=== PATIENT | male | born 1975 | race Two or more races ===

== ENCOUNTER 2024-08-14 20:47 | Emergency (ER) | payer SELFPAY ==
[~2024-08-14] VITALS: Ht 175.3 cm; Wt 86.4 kg
[2024-08-14 21:08] LABS: Urine Bacteria None Seen /hpf (None Seen)
[2024-08-14 21:14] LABS: Urine Blood Negative /uL (Negative); Urine Clarity Clear (Clear); Urine Color Colorless (Yellow); Urine Protein, UAD Negative (Negative); Urine Specific Gravity 1.006 (1.001-1.035); Urine Urobilinogen Normal (Negative); Urine WBC <1 /hpf (0 - 3)
[2024-08-14] MEDS ORDERED: BUPR150T8 PO (21:52)
[2024-08-14] MEDS ORDERED: VENL150C3 PO (21:52)
[2024-08-14] MEDS ORDERED: HYDR-3682 PO (21:52)
[2024-08-14] MEDS ORDERED: DICY10CA PO (21:52)
[2024-08-14] MEDS ORDERED: HAL5T PO (21:52)
[2024-08-14 22:04] VITALS: BP 144/86
[2024-08-14 22:05] VITALS: PULSE 90; RESP 16; O2SAT 98
== END 2024-08-14 22:14 | disposition home or self-care (01) ==
LOC: EDBD 20:47 → ER 20:47
DX: K58.9 Irritable bowel syndrome, unspecified (principal); C18.9 Malignant neoplasm of colon, unspecified; F31.77 Bipolar disorder, in partial remission, most recent episode mixed; F41.9 Anxiety disorder, unspecified; F17.210 Nicotine dependence, cigarettes, uncomplicated; Z79.899 Other long term (current) drug therapy; Z98.890 Other specified postprocedural states
CPT/HCPCS: 81001